=== PATIENT | male | born 1990 | race Caucasian/White ===

== ENCOUNTER 2025-07-18 14:52 | Emergency (ER) | payer BC ==
[~2025-07-18] VITALS: Ht 182.9 cm; Wt 113.4 kg
[2025-07-18 15:03] VITALS: BP 123/83; TEMP 97.9
[2025-07-18] MEDS ORDERED: LORA-258 PO (16:04)
[2025-07-18] MEDS: LORAZEPAM 1 MG TABLET PO ONE (16:05)
[2025-07-18 16:22] VITALS: O2SAT 97
== END 2025-07-18 16:23 | disposition home or self-care (01) ==
LOC: ER 15:32
DX: F41.0 Panic disorder [episodic paroxysmal anxiety] (principal); R06.02 Shortness of breath; Z79.899 Other long term (current) drug therapy
CPT/HCPCS: 82962-TC